=== PATIENT | male | born 1935 | race African-American/Black ===

== ENCOUNTER 2020-02-15 12:48 | Emergency (ER) | payer MEDICARE ==
[2020-02-15 13:33] LABS: #Lymphocytes 0.9 thou/uL (1.20-3.40); #Monocytes 0.6 thou/uL (0.11-0.59); #Neutrophils 3.3 thou/uL (1.40-6.50); %Lymphocytes 17.9 % (21.0-51.0); %Monocytes 12.4 % (0.0-10.0); %Neutrophils 68.7 % (42.0-75.0); Hemoglobin 10.4 g/dL (14.0-18.0); Mean Corpuscular HGB CONC 32.5 g/dL (32.0-36.0); Mean Corpuscular Hemoglobin 28.8 pg (27.0-31.0); Mean Corpuscular Volume 88.4 fL (78.0-98.0); Mean Platelet Volume 7.7 fL (7.4-10.4); Platelet Count 153 thou/uL (130-400); RBC Distribution Width 13.4 % (11.5-14.5); Red Blood Cell (RBC) Count 3.62 mill/uL (4.70-6.10); White Blood Cell (WBC) Count 4.8 thou/uL (4.8-10.8)
--- NOTE | 2020-02-15 13:47 | CT ---
EXAM: Brain CTWithout contrast: HISTORY: Altered mental status COMPARISON: 11/08/2019 FINDINGS: Stable appearing atrophy and chronic white matter ischemic change. No focal mass or midline shift. No intra or extra-axial hemorrhage. Sinuses and mastoids are clear of acute process. IMPRESSION: No mass or bleed or other significant acute intracranial process.
[2020-02-15 13:55] LABS: ALT (SGPT) 14 U/L (8-55); AST (SGOT) 17 U/L (5-34); Albumin 3.8 g/dL (3.4-4.8); Alkaline Phosphatase 46 U/L (40-110); Anion Gap 17 mmol/L (10-20); BUN (Urea Nitrogen) 26 mg/dL (8.4-25.7); Bilirubin, Total 0.7 mg/dL (0.2-1.2); Calc. Creatinine Clearance 0 mL/min (70-130); Calcium 9.1 mg/dL (7.8-10.44); Carbon Dioxide 25 mmol/L (23-31); Chloride 101 mmol/L (98-107); Globulin 3.3 g/dL (2.4-3.5); Glucose 171 mg/dL (83-110); Potassium 3.5 mmol/L (3.5-5.1); Protein, Total 7.1 g/dL (5.8-8.1); Sodium 139 mmol/L (136-145)
--- NOTE | 2020-02-15 13:59 | CT ---
CT lumbar spine noncontrast HISTORY: Fall. Back injury. COMPARISON: MRI 06/05/2018. FINDINGS: Images including the retroperitoneum show cysts of each kidney. Prominent calcification in the arterial structures. Comminuted compression fracture of the L2 vertebral body is present, involving each endplate. Posteri or elements are not involved. Loss of height centrally by approximately 40%. Gas now present within the L1-2 disc space. Other vertebral body heights are maintained. Spondylolisthesis at the L4-5 level and multilevel sever e degenerative changes are similar to prior MRI. Greatest at the L4-5 level where there is grade 1 spondylolisthesis and severe bilateral foraminal stenoses. IMPRESSION : Burst fracture of the L2 vertebral body with no significant retropulsion or involvement of the [employer] parts [employer] ior elements. Severe multilevel degenerative changes. Atherosclerosis.
--- NOTE | 2020-02-15 14:26 | RAD ---
Chest one view HISTORY: Chest pain. COMPARISON: 11/08/2019. FINDINGS: Cardiac silhouette is magnified by projection. Shallow inspiration accentuates pulmonary ma rkings. Mediastinum is midline. No lobar consolidation or evidence of pneumothorax. IMPRESSION : No abnormalities are demonstrated.
[2020-02-15] MEDS ORDERED: Aspirin Chewable 81 MG TAB ONE (15:02)
== END 2020-02-15 16:25 | disposition short-term general hospital (02) ==
LOC: NAV ERS 12:48
DX: S32.021A Stable burst fracture of second lumbar vertebra, initial encounter for closed fracture (principal); R47.1 Dysarthria and anarthria; E11.9 Type 2 diabetes mellitus without complications; I10 Essential (primary) hypertension; D64.9 Anemia, unspecified; Z79.899 Other long term (current) drug therapy; Z86.73 Personal history of transient ischemic attack (TIA), and cerebral infarction without residual deficits; W19.XXXA Unspecified fall, initial encounter
CPT/HCPCS: 36416; 70450; 71045; 72131; 80053; 84443; 84484; 85025; 93005

== ENCOUNTER 2020-03-25 13:52 | Outpatient (CLI) | payer MEDICARE ==
--- NOTE | 2020-03-25 14:16 | RAD ---
XR Lumbar Spine 2 Or 3 View History: Lumbar vertebral fracture Comparison: Lumbar spine CT February 15, 2020 Findings: There is further height loss anteriorly of the L2 fracture with 30% anterior height loss, 5 0% superior endplate height loss, and no further height loss of the posterior vertebral body. No significant worsening retropulsion. 5 mm L3/L4 retrolisthesis. 11 mm L4/L5 anterolisthesis. High-grade L4/L5 and L5/S1 degenerative disc space height loss. 2 mm L5/S1 retrolisthesis. Impression: Mild further height loss of the superior endplate and anterior vertebral body of the L2 c ompression fracture.
== END 2020-03-25 13:53 | disposition home or self-care (01) ==
LOC: NAV RAD 13:52
PROVIDERS: ATTEND Neurological Surgery
DX: S32.029A Unspecified fracture of second lumbar vertebra, initial encounter for closed fracture (principal)
CPT/HCPCS: 72100

== ENCOUNTER 2020-12-27 11:18 | Emergency (ER) | payer MEDICARE ==
[2020-12-27] MEDS ORDERED: Sodium Chloride 0.9% 1,000 ML ONE (11:46)
[2020-12-27 12:18] LABS: #Basophils 0.1 thou/uL (0.0-0.2); #Eosinphils 0.1 thou/uL (0.0-0.7); #Lymphocytes 0.9 thou/uL (1.20-3.40); #Monocytes 0.2 thou/uL (0.11-0.59); #Neutrophils 2.6 thou/uL (1.40-6.50); %Basophils 1.6 % (0.0-1.0); %Eosinophils 2.9 % (0.0-10.0); %Lymphocytes 22.3 % (21.0-51.0); %Monocytes 6.1 % (0.0-10.0); %Neutrophils 67.1 % (42.0-75.0); Hemoglobin 10.7 g/dL (14.0-18.0); Mean Corpuscular HGB CONC 30.9 g/dL (32.0-36.0); Mean Corpuscular Hemoglobin 28.3 pg (27.0-31.0); Mean Corpuscular Volume 91.4 fL (78.0-98.0); Mean Platelet Volume 9.1 fL (7.4-10.4); Platelet Count 138 thou/uL (130-400); RBC Distribution Width 13.4 % (11.5-14.5); Red Blood Cell (RBC) Count 3.78 mill/uL (4.70-6.10); White Blood Cell (WBC) Count 3.9 thou/uL (4.8-10.8)
[2020-12-27 12:24] LABS: Bilirubin Negative (Negative); Blood, Urine Large (Negative); Clarity Clear (Clear); Glucose, Urine (Dipstick) 100 mg/dL (Negative); Ketone, Urine Negative (Negative); Leukocyte Trace (Negative); Nitrite Negative (Negative); Protein, Urine (Dipstick) Negative (Neg-Trace); Specific Gravity, Urine 1.015 (1.005-1.030); Urobilinogen 0.2 mg/dL (Less than 2); pH, Urine 5.5 (5.0-9.0)
[2020-12-27 12:29] LABS: Bacteria/HPF 1+ HPF (None Seen); RBC/HPF 21-50 HPF (0-3); Squamous Epithelial 0-3 HPF (0-3)
[2020-12-27 12:32] LABS: ALT (SGPT) 10 U/L (8-55); AST (SGOT) 13 U/L (5-34); Albumin 3.6 g/dL (3.4-4.8); Alkaline Phosphatase 37 U/L (40-110); Anion Gap 13 mmol/L (10-20); BUN (Urea Nitrogen) 22 mg/dL (8.4-25.7); Bilirubin, Total 0.5 mg/dL (0.2-1.2); CK (CPK) 93 U/L (30-200); Calc. Creatinine Clearance 0 mL/min (70-130); Calcium 9.1 mg/dL (7.8-10.44); Carbon Dioxide 23 mmol/L (23-31); Chloride 104 mmol/L (98-107); Globulin 3.5 g/dL (2.4-3.5); Glucose 215 mg/dL (83-110); Lipase 15 U/L (8-78); Magnesium 2.4 mg/dL (1.6-2.6); Potassium 3.8 mmol/L (3.5-5.1); Protein, Total 7.1 g/dL (5.8-8.1); Sodium 136 mmol/L (136-145)
== END 2020-12-27 13:41 | disposition home or self-care (01) ==
LOC: NAV ERS 11:18
DX: R53.1 Weakness (principal); R44.3 Hallucinations, unspecified; Z79.899 Other long term (current) drug therapy; E11.9 Type 2 diabetes mellitus without complications; I10 Essential (primary) hypertension; D64.9 Anemia, unspecified
CPT/HCPCS: 51701; 80053; 81003; 81015; 82550; 83605; 83690; 83735; 84443; 84484; 85025; 87086; 93005; J7050

== ENCOUNTER 2022-08-24 16:48 | Outpatient (CLI) | payer MEDICARE | END 2022-08-24 16:49 | disposition home or self-care (01) | LOC: NAV RAD 16:48 | PROVIDERS: ATTEND Family Medicine | DX: M25.552 Pain in left hip (principal) ==